=== PATIENT | female | born 1960 | race Caucasian/White ===

== ENCOUNTER 2019-09-04 21:38 | Emergency (ER) | payer OTHER ==
[~2019-09-04] VITALS: Ht 165.1 cm; Wt 84.4 kg
[2019-09-04] MEDS ORDERED: LEVOTHYROXINE (21:47)
[2019-09-04] MEDS ORDERED: CALQUENCE100 MG PO (21:47)
[2019-09-04 22:29] LABS: HEMATOCRIT 37.6 % (37.0-47.0); HEMOGLOBIN 12.9 gm/dL (12.0-15.0); MCH 30.9 pg (26.0-34.0); MCHC 34.3 g/dL (28.0-37.0); MCV 90.1 fL (80.0-100.0); MPV 6.5 fl. (7.2-11.1); NUCLEATED RBCS 0 /100WBC; PLATELET COUNT* 148 thou/uL (150-400); RBC 4.17 mil/uL (4.20-5.00); RDW-CV 14.2 % (10.5-14.5); WBC 8.1 thou/uL (4.0-11.0)
[2019-09-04 22:37] LABS: CALCIUM 8.5 mg/dL (8.5-10.1); POTASSIUM 3.6 mmol/L (3.5-5.1)
[2019-09-04 22:40] LABS: APTT 21.9 Seconds (25.0-31.3); PROTIME 10.7 Seconds (9.20-11.50)
[2019-09-04 22:41] LABS: URINE BILIRUBIN NEGATIVE (Negative); URINE BLOOD TRACE (Negative); URINE CLARITY CLEAR; URINE COLOR YELLOW; URINE GLUCOSE-RANDOM NEGATIVE (Negative); URINE KETONES TRACE (Negative); URINE LEUKOCYTES-REFLEX NEGATIVE (Negative); URINE NITRITE-REFLEX NEGATIVE (Negative); URINE PROTEIN TRACE (Negative); URINE SPECIFIC GRAVITY >= 1.030 (1.005-1.030); URINE UROBILINOGEN 0.2 E.U./dl (0.2-1.0)
[2019-09-04 22:42] LABS: ALBUMIN 4.1 g/dL (3.4-5.0); TOTAL BILIRUBIN 0.4 mg/dL (<0.1-1.0); TOTAL PROTEIN 6.9 g/dL (6.4-8.2)
[2019-09-04 22:47] LABS: SALICYLATE < 2.8 mg/dL (2.8-20.0)
[2019-09-04 22:48] LABS: ACETAMINOPHEN < 2 ug/mL (10-30); ALCOHOL < 10 mg/dL (<10)
[2019-09-04 22:49] LABS: AMP/METHAMP Negative (Negative); BARBITURATES Negative (Negative); BENZODIAZEPINES Negative (Negative); COCAINE Negative (Negative); METHADONE Negative (Negative); OPIATES Negative (Negative); PCP Negative (Negative); THC Negative (Negative)
[2019-09-04 22:54] LABS: ABSOLUTE LYMPHOCYTES 0.3 thou/uL (0.8-5.3); ABSOLUTE MONOCYTES 0.4 thou/uL (0.0-1.2); ABSOLUTE NEUTROPHILS 7.4 thou/uL (1.6-8.1); PLATELET ESTIMATE ADEQUATE
[2019-09-05 02:42] VITALS: BP 169/89
--- NOTE | 2019-09-05 13:23 | EKG ---
[place] [address] ELECTROCARDIOGRAM REPORT Name: CARLOS TAPIA Room: [facility]#: [id number] Admission: 09/04/19 Attend Phys: Discharge: 09/05/19 Date of : 56 Date of Service: 09/04/192199 Report #: [id number] THIS REPORT FOR: //name// [facility] ED Test Date: 2019-09-04 Test Time: 22:00:35 Pat Name: CARLOS TAPIA Department: Room: Gender: Nutrition Intern: MARYANN : 1960 Requested By: Mary Shah Order Number: [id number] MD: Rene Quinn Measurements Intervals [place] Rate: 102 P: 44 SC: 143 QRS: 37 QRSD: 120 T: 32 QT: 342 QTc: 446 Interpretive Statements Sinus tachycardia Nonspecific intraventricular conduction delay No previous ECG available for comparison Electronically Signed On 09-05-2019 13:23:02 CDT by Rene Quinn [email or web address] <ELECTRONICALLY SIGNED> By: Rene Quinn MD, [facility] 09/05/19 132 99 99 Rene Quinn MD, [facility] /EPI
== END 2019-09-05 02:42 | disposition short-term general hospital (02) ==
LOC: M.ERS 21:38
PROVIDERS: Nurse Practitioner Family
DX: S06.300A Unspecified focal traumatic brain injury without loss of consciousness, initial encounter (principal); C85.90 Non-Hodgkin lymphoma, unspecified, unspecified site; R11.2 Nausea with vomiting, unspecified; E03.9 Hypothyroidism, unspecified; Z90.49 Acquired absence of other specified parts of digestive tract; Z90.710 Acquired absence of both cervix and uterus; X58.XXXA Exposure to other specified factors, initial encounter; Y93.89 Activity, other specified; Y92.89 Other specified places as the place of occurrence of the external cause; Y99.8 Other external cause status